=== PATIENT | male | born 1960 | race Caucasian/White ===

== ENCOUNTER → 2018-05-28 | Outpatient (CLI) | payer BC ==
[~2018-05-28] MED LIST: CLAR-19; CLON2TAB16; Conserta; HYDR-34; LISI20TA2; MIRT45TA; QUET300T3
--- NOTE | 2018-05-28 17:06 | Diagnostic Imaging Report ---
Clinical indication: Patient had a tendon reattachment a screw in his forearm just below the elbow. His arm aches at night and he has pain when he rotates his hand. Exams: 1: X-ray of the left forearm, 2 views. 2: X-ray of the left elbow, 3 views. Comparison: None. Findings: There are postop changes to the left elbow region with suture plate in the region of the proximal radial head tuberosity area which is in the expected region of the biceps tendon attachment. There is lucency about the region of the suture plate and it appears as though the suture plate may have migrated within the proximal radial bone region. There are dystrophic appearing calcifications in the anterior elbow soft tissue adjacent to the postop area which may represent heterotopic ossification. There is no elbow effusion. There is no fracture or dislocation. There is minimal spurring of the posterior aspect of the olecranon process. Impression: 1: There are postop changes with suture plate involving the proximal radial tuberosity region which may be related to biceps tendon reattachment. There is a lucency about the region of the suture plate and it appears as though the suture plate may have migrated within the bone . 2: There is no acute fracture or dislocation. 3: Suspected heterotopic ossification involving the anterior aspect of the elbow along the expected region of the biceps tendon. Dictated by: Dictated on workstation # [id number]
== END ==
LOC: RAD 15:36
PROVIDERS: ATTEND Family Medicine
DX: M25.422 Effusion, left elbow (principal); M79.632 Pain in left forearm; Z98.890 Other specified postprocedural states; Z96.7 Presence of other bone and tendon implants
CPT/HCPCS: 73080; 73090

== ENCOUNTER 2021-02-25 10:09 | Outpatient (CLI) | payer BC ==
[~2021-02-25] VITALS: Ht 172.7 cm; Wt 73.4 kg
[2021-02-25] MEDS ORDERED: AMPH20TA2 PO (10:49)
[2021-02-25] MEDS ORDERED: MIRT-68 PO (10:49)
[2021-02-25] MEDS ORDERED: LISI10TA25 PO (10:49)
[2021-02-25] MEDS ORDERED: ARIP2TAB45 PO (10:49)
[2021-02-25] MEDS ORDERED: TMSL.4C PO (10:49)
== END 2021-02-25 15:08 | disposition home or self-care (01) ==
LOC: PREOP 10:09
PROVIDERS: ATTEND Surgery
DX: Z01.818 Encounter for other preprocedural examination (principal)

== ENCOUNTER 2021-03-03 10:22 | Day surgery (SDC) | payer BC ==
[~2021-03-03] VITALS: Ht 172.7 cm; Wt 73.4 kg
[2021-03-03] VITALS (15 sets, daily range): BP systolic 112–164; BP diastolic 65–89
[~2021-03-03 10:22] MED LIST changes: +AMPH20TA2 PO; +ARIP2TAB45 PO; +LISI10TA25 PO; +MIRT-68 PO; +TMSL.4C PO
[2021-03-03] MEDS ORDERED: NS IV 500 ML 500 ML ONE (10:50)
--- NOTE | 2021-03-03 10:53 | Conscious Sedation/ASA ---
Conscious Sedation Pre-Proced Time 10:45 ASA Score 2 For ASA 3 and 4: Consider anesthesia and medical clearance. Also, for patients with a history of failed moderate sedation consider anesthesia. Airway Lungs Heart ASA score ASA 1: a normal healthy patient ASA 2: a patient with a mild systemic disease (mid diabetes, controlled hypertension, obesity ASA 3: a patient with a severe systemic disease that limits activity (angina, COPD, prior Myocardial infarction) ASA 4: a patient with an incapacitating disease that is a constant threat to life (CHF, renal failure) ASA 5: a moribund patient not expected to survive 24 hrs. (ruptured aneurysm) ASA 6: a declared brain- patient whose organs are being harvested. For emergent operations, add the letter E after the classification Mallampati Classification Grade 2 Sedation Plan Analgesia, Amnesia, Plan communicated to team members, Discussed options with patient/fam, Discussed risks with patient/fam The patient is an appropriate candidate to undergo the planned procedure, sedation, and anesthesia. The patient immediately re-assessed prior to indication. NICHELLE CALABRESE MD Mar 03, 2021 10:53
--- NOTE | 2021-03-03 10:54 | Progress Note-Pre Operative ---
Pre-Operative Progress Note H&P Reviewed The H&P was reviewed, patient examined and no changes noted. Date Seen by Provider: Mar 03, 2021 Time Seen by Provider: 10:45 Date H&P Reviewed: Mar 03, 2021 Time H&P Reviewed: 10:45 Pre-Operative Diagnosis: screening o NICHELLE CALABRESE MD Mar 03, 2021 10:54
--- NOTE | 2021-03-03 10:55 | Discharge Inst-Surgical ---
D/C Lap Instructions-[place] Follow Up Activity as tolerated High Fiber Diet 25g or more per day Avoid Alcohol, Caffeine, Spicy [place] and Acid foods. Drink 64 fluid oz or more of fluids per day. Symptoms to Report: Fever over 101 degree F, Nausea/Vomiting If any problems/questions: Contact your physician or go to Emergency Room NICHELLE CALABRESE MD Mar 03, 2021 10:55
[2021-03-03] MEDS ORDERED: HYDROcodone/APAP 5 MG/325 MG (LORTAB) TAB PO PRN (11:00)
[2021-03-03] MEDS ORDERED: ONDANSETRON 4 MG/2 ML (SDV) Z0FRAN IVP PRN (11:00)
[2021-03-03] MEDS ORDERED: morphine INJ 10 MG/ML 1ML (SYR OR VIAL) IVP PRN ×2 (11:00)
[2021-03-03] MEDS ORDERED: ACETAMINOPHEN 325 MG TABLET PO PRN (11:00)
[2021-03-03] MEDS ORDERED: LIDOCAINE JELLY 2% 6 ML SYRINGE MM PRN (11:15)
[2021-03-03] MEDS ORDERED: NS IV 500 ML 500 ML IV PRN (11:15)
[2021-03-03] MEDS ORDERED: fentaNYL INJ 100 MCG/2 ML AMP IVP ONE (11:15)
[2021-03-03] MEDS ORDERED: MIDAZOLAM 5 MG/5 ML (VERSED) VIAL IV ONE (11:15)
[2021-03-03] MEDS ORDERED: MIDAZOLAM 5 MG/5 ML (VERSED) VIAL ONE (11:46)
[2021-03-03] MEDS ORDERED: fentaNYL INJ 100 MCG/2 ML AMP ONE (11:47)
[2021-03-03] MEDS ORDERED: LIDOCAINE JELLY 2% 6 ML SYRINGE ONE (11:48)
--- NOTE | 2021-03-03 12:43 | Progress Note-Post Operative ---
Post-Operative Progess Note Surgeon (s)/Latin Teacher (s) Surgeon NICHELLE CALABRESE MD Latin Teacher: none Pre-Operative Diagnosis screening colo Post-Operative Diagnosis mild chronic stage 2 ext and int hemorrhoids. Procedure & Operative Findings Date of Procedure 03/03/21 Procedure Performed/Findings colonoscopy Anesthesia Type cs Estimated Blood Loss Estimated blood loss (mL): minimal Specimens/Packing Specimens Removed none NICHELLE CALABRESE MD Mar 03, 2021 12:43
--- NOTE | 2021-03-03 17:02 | OPERATIVE REPORT ---
DATE OF SERVICE: 03/03/2021 ATTENDING PRIMARY CARE PHYSICIAN: Jenni Boland MD PREOPERATIVE DIAGNOSIS: Screening colonoscopy. POSTOPERATIVE DIAGNOSES: Mild chronic stage II external and internal hemorrhoids. PROCEDURE: Colonoscopy. SURGEON: Nichelle Calabrese MD. ANESTHESIA: Conscious sedation. ESTIMATED BLOOD LOSS: Minimal. FINDINGS: Mild chronic stage II external and internal hemorrhoids. DISPOSITION: The patient tolerated the procedure well. INDICATIONS: The patient is a 61-year-old male referred over to us for screening colonoscopy. His last colonoscopy was approximately 10 years ago and believes this to be normal. He states that he is doing well, does not report any major issues with diarrhea nor constipation as well as no red blood per rectum nor any dark tarry stools. He also does not report any family history of colon cancer. DESCRIPTION OF PROCEDURE: The patient was brought to the endoscopy suite, laid in the left lateral decubitus position. After adequate IV pain and sedative medications and conscious sedation anesthesia, a digital rectal examination was performed. Mild chronic stage II external and internal hemorrhoids were identified, which were not actively edematous nor inflamed and no bleeding. Normal sphincter tone was felt and there were no palpable masses. Prostate gland was palpable and appeared normal. The endoscope was then intubated and anus and rectum gently insufflated. The endoscope was then advanced to the valves of [place] of the rectum with no polyps or any neoplasms identified. Through the sigmoid colon, no diverticulosis identified. The endoscope was then advanced to the remainder of the descending, transverse and ascending colon to the cecum. These segments were normal. No polyps or any neoplasms identified. The endoscope was then slowly withdrawn while taking a second look and suctioning of residual air with no additional findings. The patient tolerated the procedure well. We will recommend a high fiber diet with at least 30 grams of fiber daily as well as significant amounts of water to promote soft stools on a daily basis and if he is asymptomatic, does not need another colonoscopy for another 10 years. Job ID: [id number] DocumentID: [id number] Dictated Date: 03/03/2021 12:38:17 Cut Off Saw Set Up Operator Date: 03/03/2021 17:02:12 Dictated By: NICHELLE CALABRESE MD
== END 2021-03-03 13:25 | disposition home or self-care (01) ==
LOC: ENDO 10:22
PROVIDERS: ATTEND Surgery
DX: Z12.11 Encounter for screening for malignant neoplasm of colon (principal); K64.1 Second degree hemorrhoids; I10 Essential (primary) hypertension; F32.9 Major depressive disorder, single episode, unspecified; F98.8 Other specified behavioral and emotional disorders with onset usually occurring in childhood and adolescence; N40.0 Benign prostatic hyperplasia without lower urinary tract symptoms; Z79.899 Other long term (current) drug therapy